=== PATIENT | female | born 1990 | race Two or more races ===

== ENCOUNTER 2017-01-21 07:59 | Emergency (ER) | payer OTHER ==
[2017-01-21 07:51] LABS: URINE SOURCE CLEAN CATCH
[2017-01-21 07:56] LABS: URINE APPEARANCE CLEAR; URINE BILIRUBIN NEG (NEG); URINE BLOOD NEG (NEG); URINE COLOR YELLOW; URINE GLUCOSE NEG (NEG); URINE KETONE NEG (NEG); URINE LEUKOCYTE ESTERASE NEG (NEG); URINE NITRATE NEG (NEG); URINE PROTEIN NEG (NEG); URINE SPECIFIC GRAVITY 1.009 (1.003-1.035); URINE UROBILINOGEN 0.2 MG/DL (NEG)
[2017-01-21 08:05] LABS: CULTURE INDICATED? NO
[2017-01-21 08:28] LABS: BASOPHIL% 0.2 % (0-2.5); EOSINOPHIL% 0.3 % (0.0-7.0); HEMOGLOBIN 14.5 gm/dL (12.0-16.0); LYMPHOCYTE# 1.3 X10e3 (1.0-3.5); LYMPHOCYTE% 9.7 % (17.0-45.0); MEAN CELL VOLUME 91.3 FL (83-96); MEAN CORPUSCULAR HGB CONC 32.8 g/dL (30-36); MEAN PLATELET VOLUME 10.5 FL (6.5-11.5); MONOCYTE# 0.6 X10e3 (0-1.0); MONOCYTE% 4.4 % (3.0-12.0); NEUTROPHIL# 11.3 X10e3 (1.5-7.1); NEUTROPHIL% 85.4 % (40-75); PLATELET COUNT 218 X10e3 (140-420); RED BLOOD COUNT 4.82 X10e (3.90-5.30); RED CELL DISTRIBUTION WIDTH 13.6 % (11.0-15.5); WHITE BLOOD COUNT 13.2 X10e3 (4.0-10.5)
[2017-01-21 08:31] LABS: DIFF IND NO
[2017-01-21 08:53] LABS: ALBUMIN SERUM 3.8 g/dL (3.5-5.0); ALKALINE PHOSPHATASE 67 U/L (32-92); ALT (SGPT) 16 U/L (10-40); AMYLASE 20 U/L (0-46); AST (SGOT) 16 U/L (10-42); BILIRUBIN,TOTAL 0.6 mg/dL (0.2-2.0); BLOOD UREA NITROGEN 11 mg/dL (9-23); BUN/CREATININE RATIO 15.71; CARBON DIOXIDE 25 mmol/L (22-31); CHLORIDE 104 mmol/L (100-111); CREATININE SERUM 0.7 mg/dL (0.6-1.4); GLOM FILT RATE Estimated 117.9 mL/min (>60); GLUCOSE FASTING 81 mg/dL (70-110); LIPASE 17 U/L (22-51); PROTEIN TOTAL SERUM 7.2 g/dL (6.0-8.3); SODIUM 136 mmol/L (135-145)
[2017-01-21 08:54] LABS: BILIRUBIN, DIRECT <0.1 mg/dL (0.0-0.2); BILIRUBIN,INDIRECT 0.5 mg/dL (0.0-0.9)
== END 2017-01-21 10:34 | disposition home or self-care (01) ==
LOC: CED 07:59
PROVIDERS: Nurse Practitioner
DX: R10.13 Epigastric pain (principal)
CPT/HCPCS: 36415; 80048; 80076; 81003; 82150; 83690; 84703; 85025; 86677; 99284

== ENCOUNTER 2017-02-13 02:16 | Inpatient (IN) | payer OTHER ==
--- NOTE | ~2017-02-13 | CT2 ---
[facility] A Service of [facility] RADIOLOGY TEXT RESULTS PATIENT: AMILCAR RODRIGUEZ LOCATION: A 240-01 : [birth year] UNIT #: [id number] AGE: [address]: Blayne Rodriguez MD SEX: F ORDER DR: [id number] [facility] [address]. [place], [place] [address] [id number] MR#: [id number] Acc #: [id number] NAME: AMILCAR RODRIGUEZ : 1990 SEX: F STUDY DATE/TIME: 02/13/2017 4:58 UNIT: JOSE ALBERTO ROOM: STUDY DESCRIPTION: CT Abd and Pelv W Cont Attending Physician: Devaughn Clinton Aprn Ordering Physician: Devaughn Clinton Aprn Primary Care Physician: Primary Care Physician No MEDICAL IMAGING REPORT This report is preliminary unless electronic signature is present EXAM CT abdomen and pelvis with contrast HISTORY 26-year-old female with diffuse abdominal pain, nausea, vomiting. TECHNIQUE This CT examination was performed with one or more of the following radiation dose reduction techniques: automatic exposure control, adjustment of mA and/or kV according to patient size, and iterative reconstruction. FINDINGS Axial images performed through the abdomen and pelvis following IV contrast. Multiplanar reconstructed images reviewed at a workstation. ABDOMEN: Lung bases unremarkable. The liver demonstrates a mildly distended gallbladder and mild periportal prominence which may represent some mild intrahepatic ductal dilatation. The common bile duct measures about 8 mm which is slightly increased in size for a patient of this age. No obstructing stone or lesions identified however further evaluation with ERCP or MRCP may be warranted. The pancreas, kidneys and adrenal glands unremarkable. The spleen appears normal. GI tract remarkable for moderate amount of colonic stool. The appendix is not clearly identified but no focal inflammatory change seen. Retroperitoneum unremarkable. PELVIS: Bladder, uterus and adnexa appear normal. The osseous structures appear normal. IMPRESSION Mild intrahepatic ductal dilatation as well as borderline distension of the common bile duct. The gallbladder is mildly distended. Findings are nonspecific but does raise the concern for possible distal obstruction but [facility] A Service of [facility] & [facility] RADIOLOGY TEXT RESULTS PATIENT: AMILCAR RODRIGUEZ LOCATION: [place] [address] : [birth year] UNIT #: [id number] AGE: [address]: Blayne Rodriguez MD SEX: F ORDER DR: a discrete abnormality is not identified at CT. Further evaluation with MRCP or ERCP may be of benefit. Dictated by... Phu Feliciano M.D. THIS IS AN ELECTRONICALLY VERIFIED REPORT Phu Feliciano M.D. at 02/13/2017 10:06 PM BLANCHE/aníbal TD: 02/13/2017 06:07 JOB #: [id number] MEDICAL IMAGING REPORT Page 1 of 1 COPY
--- NOTE | ~2017-02-13 | MR145 ---
[facility] A Service of [facility] & [facility] RADIOLOGY TEXT RESULTS PATIENT: AMILCAR FREITAS LOCATION: C2A 240-01 : [birth year] UNIT #: [id number] AGE: [address]: Blayne Rodriguez MD SEX: F ORDER DR: [id number] [facility] [address] [place], [place] [address] [id number] I MR#: [id number] #: [id number] NAME: AMILCAR RODRIGUEZ : 1990 SEX: F STUDY DATE/TIME: 02/13/2017 13:12 UNIT: [facility] ROOM: 240 STUDY DESCRIPTION: MR MRCP WWo Contrast Attending Physician: Blayne Rodriguez M.D. Ordering Physician: Blanye Rodriguez M.D. Primary Care Physician: No Primary Care Physician MRI CENTER REPORT This report is preliminary unless electronic signature is present. EXAM MRI abdomen with and without contrast, MRCP protocol. INDICATIONS Acute onset abdominal pain, nausea and vomiting beginning last night. Prominence of the biliary system on recent CT. PROCEDURE Multiplanar, multisequence MR imaging of the abdomen prior to and following 11 mL of MultiHance. COMPARISON CT from 02/13/2017. FINDINGS ABDOMEN WITHOUT CONTRAST: Liver has normal size and morphology. No hepatic fat or iron deposition. The spleen, kidneys, adrenal glands, pancreas and bowel loops have normal signal. Common duct measures 8 mm and there is mild prominence of the intrahepatic bile ducts. There are a few tiny stones layering dependently in the gallbladder. There is mild gallbladder wall thickening versus trace pericholecystic fluid. Gallbladder is moderately distended. No evidence for choledocholithiasis. No obstructing mass. Pancreatic duct is nondilated. ABDOMEN WITH CONTRAST: No abnormal enhancement in the abdomen. IMPRESSION 1. Prominence of the common duct up to 8 mm with mild intrahepatic bile duct dilation. No evidence for choledocholithiasis at this time. 2. Moderate distension of the gallbladder with mild gallbladder wall thickening versus pericholecystic fluid, as well as a few tiny stones STS. [facility] A Service of [facility] & [facility] RADIOLOGY TEXT RESULTS PATIENT: AMILCAR FREITAS LOCATION: [place] [address] : [birth year] UNIT #: [id number] AGE: [address]: Blayne Rodriguez MD SEX: F ORDER DR: in the gallbladder. Findings are suspicious for mild or early acute cholecystitis. Correlate with the patient's symptoms. 3. Biliary system findings are nonspecific but could be seen in the setting of a recently passed stone. Dictated by... Lj Wilson M.D. THIS IS AN ELECTRONICALLY VERIFIED REPORT Lj Wilson M.D. at 02/14/2017 7:02 AM EV/finn TD: 02/13/2017 20:21 JOB #: [id number] MRI CENTER REPORT Page 1 of 1 COPY
--- NOTE | ~2017-02-13 | HP ---
Unit #: [id number] #: [id number] Patient: AMILCAR RODRIGUEZ [id number] [address] [address] [id number] I MR#: [id number] NAME: AMILCAR RODRIGUEZ ROOM: 240 Age: 26 Sex: F Admission Date: 02/13/2017 : 1990 Attending Physician: Blayne Rodriguez M.D. Primary Care Physician: No Primary Care Physician HISTORY AND PHYSICAL CHIEF COMPLAINT Abdominal pain. HISTORY OF PRESENT ILLNESS The patient is a 26-year-old female with a past medical history of gastritis on omeprazole, who presented to the emergency room with a chief complaint of crushing abdominal pain. She mentioned the pain started a day ago, mainly epigastric and right upper quadrant, like someone squeezing her abdomen, about 8-10 in intensity. She complains of two episodes of vomiting. No diarrhea. Denies having similar episodes of pain. In the emergency room she was given Dilaudid and the pain is slightly better. Her CT scan in the emergency room is suggestive of mild intrahepatic ductal dilatation as well as borderline distension of the CBD. Gallbladder is mildly distended. Findings are concerning for possible distal obstruction, but a discrete abnormality is not identified at CT. Radiology is recommending MRCP or ERCP. PAST MEDICAL HISTORY History of gastritis. 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 She denies any smoking, alcohol or using any illicit drugs. FAMILY HISTORY Grandmother has diabetes. Mother has hypertension. ALLERGIES No known drug allergies. HOME MEDICATIONS 1. Prilosec. 2. Carafate. 3. control pills. REVIEW OF SYSTEMS Complete review of systems done and negative except for that mentioned in the history of present illness. PHYSICAL EXAMINATION GENERAL: The patient is alert and oriented times three, lying in the bed, in no acute distress. Unit #: [id number] #: [id number] Patient: AMILCAR RODRIGUEZ VITALS: On examination vital signs are temperature 97.8, pulse rate 71, respiratory rate 16, blood pressure 125/82. HEENT: Normocephalic, atraumatic. No icterus. Pupils equally round and reactive to light and accommodation. Extraocular muscles intact. NECK: Supple. No jugular venous distension. CHEST: Bilateral air entry. Clear to auscultation. HEART: S1 and S2. Regular rate and rhythm. ABDOMEN: Soft. Tender in the right upper quadrant. Bowel sounds present. EXTREMITIES: No edema. Normal pulses. DIAGNOSTIC STUDIES IMAGING: CT findings as mentioned above. LABORATORY: Glucose 123, BUN 14, creatinine 0.6, sodium 138, potassium 3.4, chloride 105, bicarb 25, AST 23, ALT 27, total bilirubin 0.4, direct 0.1, indirect 0.3. White blood cell count 8.5, hemoglobin 14.5, platelets 228. Urinalysis leukocyte esterase nitrite negative, 2+ blood. ASSESSMENT 1. Abdominal pain. Concern for possible gallstone which has already passed. Will keep her on p.r.n. (1) . Will consult GI. Will get an MRI of the abdomen. Will also keep her on IV antimicrobials. Will go from GI input. 2. History of gastritis. Will continue with Protonix. 3. DVT precautions. 4. Further recommendations per hospital course. Dictated by Nicanor Lyles TD: 02/13/2017 11:02 JOB #: [id number] HISTORY AND PHYSICAL Page 1 of 1 X X HISTORY AND PHYSICAL
--- NOTE | ~2017-02-13 | OR ---
Unit #: [id number] #: [id number] Patient: AMILCAR FREITAS [id number] [address] [address] [id number] I MR#: [id number] NAME: AMILCAR FREITAS ROOM: 464 Date of Procedure: 02/14/2017 Admission Date: 02/13/2017 Surgeon: Nirav Ashley M.D. : 1990 Attending Physician: Blayne Rodriguez M.D. Primary Care Physician: Primary Care Physician No OPERATIVE REPORT PREOPERATIVE DIAGNOSIS Cholecystitis. POSTOPERATIVE DIAGNOSIS Cholecystitis. PROCEDURE PERFORMED Laparoscopic cholecystectomy. ASSISTANT Mauro Fulton M.D. ANESTHESIA General endotracheal anesthesia. ESTIMATED BLOOD LOSS Minimal. IV FLUIDS 800 crystalloid. COMPLICATIONS None. INDICATIONS FOR PROCEDURE The patient is a 26-year-old with acute cholecystitis. DESCRIPTION OF PROCEDURE The patient was taken to the operating theater and placed in supine position. General anesthesia was induced. The abdomen was prepped and draped. A 5-mm Optiview trocar was placed in the right upper quadrant without difficulty. The abdomen was insufflated to 15 mmHg with CO2. Under direct vision, I placed a right lower quadrant 5 mm, subxiphoid 10 mm, and umbilical 5 mm. General inspection of the abdomen revealed acute cholecystitis with distended gallbladder, edema, and adhesions. The liver appeared normal. The gallbladder was retracted up over the liver. We dissected the neck of the gallbladder and identified the cystic duct. Its junction with the gallbladder was confirmed. It was thus skeletonized, doubly hemoclipped, and divided. The cystic artery laid immediately posterior. This was skeletonized, doubly hemoclipped, and divided. The gallbladder was removed from the gallbladder bed with Bovie electrocautery and delivered via the subxiphoid port. Hemostasis was adequate. I Unit #: [id number] #: [id number] Patient: AMILCAR FREITAS removed the ports under direct vision with no evidence of abdominal hemorrhage. The fascia was closed with 0 Vicryl and skin with 4-0 Vicryl. The patient tolerated the procedure well and sent to recovery room in good condition. Dictated by... Nicanor Robbins TD: 02/14/2017 23:36 JOB #: [id number] OPERATIVE REPORT Page 1 of 1 X Nirav Ashley MD PROCEDURE OPERATIVE NOTE
--- NOTE | ~2017-02-13 | DS ---
Unit #: [id number] #: [id number] Patient: AMILCAR FREITAS [id number] [address] [address] [id number] I MR#: [id number] NAME: AMILCAR FREITAS ROOM: 464 Age: 26 Sex: F Admission Date: 02/13/2017 : 1990 Discharge Date: 02/15/2017 Attending Physician: Blayne Rodriguez M.D. Primary Care Physician: Lola Primary Care Physician DISCHARGE SUMMARY FINAL DIAGNOSIS Cholecystitis, status post lap bharati. SECONDARY DIAGNOSIS Gastroesophageal reflux disease. CONSULTS 1. Dr. Dave. 2. Dr. Lenard Gutierres. HOSPITAL COURSE 26-year-old female presented with abdominal pain. She was seen by GI, had an ERCP. The common bile duct was dilated. She had an MRI of the abdomen which showed gallstones. She is status post surgery. At time of this dictation, she is tolerating a clear liquid diet. Her diet is to be advanced. She will be discharged home in stable condition. FOLLOWUP Patient is to follow up with her primary care provider, Dr. Franklin Landis. DISCHARGE MEDICATIONS 1. Swain 5/325, one to two tablets p.o. q.6 hourly p.r.n. Script was written by Dr. Phillips. 2. Prilosec 20 mg p.o. daily. 3. Carafate 1 g p.o. daily. 4. control pill, one pill p.o. daily. She is scheduled to follow up with PCP in the next one to two weeks. Time spend coordinating discharge is about 20 minutes. Dictated by... Nicanor Ruiz TD: 02/15/2017 09:44 JOB #: [id number] Unit #: [id number] #: [id number] Patient: AMILCAR FREITAS DISCHARGE SUMMARY Page 1 of 1 X Tessie Weston MD X DISCHARGE SUMMARY
--- NOTE | ~2017-02-13 | CO ---
Unit #: [id number] #: [id number] Patient: AMILCAR RODRIGUEZ [id number] [address] [address] [id number] I MR#: [id number] NAME: AMILCAR RODRIGUEZ ROOM: 240 Age: 26 Sex: F Admission Date: 02/13/2017 : 1990 Attending Physician: Blayne Rodriguez M.D. Primary Care Physician: Lola Primary Care Physician Consultation Date: 02/13/2017 CONSULTATION REPORT REASON FOR CONSULTATION Epigastric and right upper quadrant pain. CONSULTING PHYSICIAN Dr. Lenard Gutierres. HISTORY OF PRESENT ILLNESS Thank you very much for asking us to see Ms. Rodriguez. She is a 26-year-old female. 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 She mentioned that the pain started 24-36 hours ago. It was mainly epigastric and right upper quadrant. It was very severe. It was a deep pressure-type pain. She had nausea and vomiting. She denies any GI bleeding. She denies any melena or hematochezia or hematemesis. She denies any evidence of jaundice. No or pulmonary symptoms. She has not had a similar episode of pain. In the emergency room, she was evaluated and had normal CBC and CMP as well as amylase and lipase. A CAT scan was suggestive of mild intrahepatic ductal dilatation with her bile duct at the upper limits of normal. There was no evidence of acute cholecystitis. She presents at this time for further evaluation. PAST MEDICAL HISTORY Alkaline gastritis. SOCIAL HISTORY No tobacco or alcohol use. 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 FAMILY HISTORY Hypertension, diabetes. ALLERGIES No known medical allergies. MEDICATIONS AT HOME 1. Prilosec. 2. Carafate. 3. control pills. REVIEW OF SYSTEMS Negative except for above. IMMUNIZATIONS Unit #: [id number] #: [id number] Patient: AMILCAR RODRIGUEZ Status unknown. PHYSICAL EXAMINATION GENERAL: A well-developed, well-nourished, white female in mild distress. VITAL SIGNS: Afebrile. Vital signs stable. NECK: Supple. No thyromegaly or adenopathy. HEENT: Sclerae not icteric. Extraocular movements are intact. BACK: No CVA or spinous tenderness. ABDOMEN: Flat, soft. Nontender in the lower abdomen or on the left side. In the epigastric area and right upper quadrant, there is mild to moderate tenderness but no rebound, perineal signs, or masses. EXTREMITIES: No calf tenderness. No erythema. DIAGNOSTIC STUDIES LABORATORY: Laboratory studies reveal the patient to have a CMP that shows a glucose of 123, BUN 14, creatinine 0.5, potassium 3.4. Normal liver function studies, amylase, and lipase. Her white count is 8.5 with a hemoglobin of 14.5, hematocrit 44.6. Her urinalysis is trace leukocyte esterase, negative nitrites. IMPRESSION A 26-year-old female with epigastric and right upper quadrant pain. We have explained to the patient that we feel she should have a STAT right upper quadrant ultrasound to see if stones are present. Often times, stones will not show up on CT scan but will show up on ultrasound. If this is negative, she may need upper endoscopy versus HIDA scan. Will proceed accordingly. Her laboratory studies are in the process of being repeated. Dictated by... Nicanor Solis/malachi TD: 02/13/2017 14:36 JOB #: [id number] CC: [facility] CONSULTATION REPORT Page 1 of 1 X Soham Dave MD X CONSULTATION REPORT
--- NOTE | ~2017-02-13 | CO ---
Unit #: [id number] #: [id number] Patient: AMILCAR RODRIGUEZ [id number] [address] [address] [id number] I MR#: [id number] NAME: AMILCAR RODRIGUEZ ROOM: 240 Age: 26 Sex: F Admission Date: 02/13/2017 : 1990 Attending Physician: Blayne Rodriguez M.D. Primary Care Physician: Lola Primary Care Physician Consultation Date: 02/13/2017 CONSULTATION REPORT REASON FOR CONSULT Severe abdominal pain, dilated CBD and intrahepatic duct. HISTORY OF PRESENT ILLNESS Ms. Cotton is a 26-year-old lady. She was fine until last night when she suddenly woke up with severe upper abdominal pain associated with nausea and vomiting. She has never had similar pain. It was rated a 10 out of 10, associated with vomiting. No hematemesis. No radiation to back. She did not eat anything unusual the night before. She has no bowel symptoms. PAST MEDICAL HISTORY History of gastritis, has been taking acid-reducing medications. SOCIAL HISTORY Nonsmoker. Nonalcoholic. FAMILY HISTORY Not contributory. ALLERGIES None. MEDICATIONS Medications at home included Prilosec and control pills. REVIEW OF SYSTEMS A complete review of systems was done, which was negative other than as mentioned above. PHYSICAL EXAMINATION VITAL SIGNS: Vital signs stable. Afebrile, 97.8, pulse 71, respirations 16, blood pressure 125/82. GENERAL: No acute distress. However, looks in pain. HEENT: Pupils equal and reactive. Sclera anicteric. Oral mucosa moist. NECK: No JVD. No lymphadenopathy. CHEST: Clear to auscultation bilaterally. CARDIOVASCULAR SYSTEM: Regular rate and rhythm. No murmurs. ABDOMEN: Significantly tender in epigastric and right upper quadrant areas. No guarding or rebound. Bowel sounds are present. EXTREMITIES: Without any clubbing, cyanosis or edema. NEUROLOGIC: Intact. DIAGNOSTIC STUDIES LABS: LFTs are normal. CBC shows normal white count, hemoglobin, Unit #: [id number] #: [id number] Patient: AMILCAR RODRIGUEZ hematocrit. Amylase and lipase are normal. IMAGING: CT scan shows dilated intrahepatic and common bile duct. Gallbladder shows some swelling, also. ASSESSMENT AND PLAN Patient with significant biliary colic, possible CBD stone versus acute cholecystitis. The LFTs are normal. She has no fever or white count at this time. Will continue treatment with symptomatic treatment of pain, as well as antibiotics for now. Will get a HIDA scan. I will have LSA to consult on patient. If continues with pain, will consider laparoscopic cholecystectomy versus ERCP after discussing with surgery. Thank you, Dr. Rodriguez, for this interesting consult. Will follow along. Dictated by... Nicanor Mai/charlie TD: 02/13/2017 14:04 JOB #: [id number] CONSULTATION REPORT Page 1 of 1 X Lenard Gutierres MD CONSULTATION REPORT
[2017-02-13 02:50] LABS: BASOPHIL% 0.4 % (0-2.5); EOSINOPHIL# 0.1 X10e3 (0-0.7); EOSINOPHIL% 1.4 % (0.0-7.0); HEMATOCRIT 44.6 % (35.0-45.0); HEMOGLOBIN 14.5 gm/dL (12.0-16.0); LYMPHOCYTE# 3.8 X10e3 (1.0-3.5); LYMPHOCYTE% 44.2 % (17.0-45.0); MEAN CELL VOLUME 92.4 FL (83-96); MEAN CORPUSCULAR HGB CONC 32.5 g/dL (30-36); MEAN PLATELET VOLUME 10.7 FL (6.5-11.5); MONOCYTE# 0.7 X10e3 (0-1.0); MONOCYTE% 7.7 % (3.0-12.0); NEUTROPHIL# 3.9 X10e3 (1.5-7.1); NEUTROPHIL% 46.3 % (40-75); PLATELET COUNT 228 X10e3 (140-420); RED BLOOD COUNT 4.83 X10e (3.90-5.30); RED CELL DISTRIBUTION WIDTH 13.8 % (11.0-15.5); WHITE BLOOD COUNT 8.5 X10e3 (4.0-10.5)
[2017-02-13 02:51] LABS: DIFF IND NO
[2017-02-13 03:13] LABS: ALBUMIN SERUM 3.7 g/dL (3.5-5.0); BILIRUBIN,TOTAL 0.4 mg/dL (0.2-2.0); CALCIUM SERUM 8.3 mg/dL (8.4-10.2); CREATININE SERUM 0.5 mg/dL (0.6-1.4); GLOM FILT RATE Estimated 131.7 mL/min (>60); POTASSIUM 3.4 mmol/L (3.5-5.1); PROTEIN TOTAL SERUM 6.9 g/dL (6.0-8.3)
[2017-02-13 03:17] LABS: BILIRUBIN, DIRECT 0.1 mg/dL (0.0-0.2); BILIRUBIN,INDIRECT 0.3 mg/dL (0.0-0.9)
[2017-02-13 04:44] LABS: URINE APPEARANCE CLEAR; URINE BACTERIA AUWI NEG (NEGATIVE); URINE BILIRUBIN NEG (NEG); URINE BLOOD 2+ (NEG); URINE COLOR YELLOW; URINE GLUCOSE NEG (NEG); URINE KETONE NEG (NEG); URINE LEUKOCYTE ESTERASE TRACE (NEG); URINE NITRATE NEG (NEG); URINE PH 7.5 (5-8); URINE PROTEIN NEG (NEG); URINE SPECIFIC GRAVITY 1.013 (1.003-1.035); URINE SQUAMOUS EPITHELIAL CELL OCC /[HPF]; URINE UROBILINOGEN 0.2 MG/DL (NEG)
[2017-02-13 04:46] LABS: CULTURE INDICATED? NO
[2017-02-13] MEDS ORDERED: PRILOSEC PO (07:40)
[2017-02-13] MEDS ORDERED: BIRTH CONTROL PILL PO (07:41)
[2017-02-13] MEDS ORDERED: CARAFATE PO (07:41)
[2017-02-13 13:27] LABS: CHOLESTEROL 229 mg/dL (0-200); HDL CHOLESTEROL 61 mg/dL (35-95); LDL/HDL RATIO 2 RATIO (0-4); TRIGLYCERIDES 101 mg/dL (10-160)
[2017-02-13 13:31] LABS: LDL CHOLESTEROL 148 mg/dL (-130)
[2017-02-13 13:53] LABS: BILIRUBIN,TOTAL 1.4 mg/dL (0.2-2.0); CALCIUM SERUM 8.8 mg/dL (8.4-10.2); CREATININE SERUM 0.6 mg/dL (0.6-1.4); POTASSIUM 3.9 mmol/L (3.5-5.1); PROTEIN TOTAL SERUM 7.2 g/dL (6.0-8.3)
[2017-02-14 06:15] LABS: BASOPHIL% 0.4 % (0-2.5); EOSINOPHIL# 0.1 X10e3 (0-0.7); EOSINOPHIL% 1.8 % (0.0-7.0); HEMATOCRIT 44.2 % (35.0-45.0); HEMOGLOBIN 14.4 gm/dL (12.0-16.0); LYMPHOCYTE# 1.5 X10e3 (1.0-3.5); LYMPHOCYTE% 33.5 % (17.0-45.0); MEAN CELL VOLUME 91.8 FL (83-96); MEAN CORPUSCULAR HEMOGLOBIN 29.8 PG (28-34); MEAN CORPUSCULAR HGB CONC 32.5 g/dL (30-36); MEAN PLATELET VOLUME 10.1 FL (6.5-11.5); MONOCYTE# 0.4 X10e3 (0-1.0); NEUTROPHIL# 2.6 X10e3 (1.5-7.1); NEUTROPHIL% 55.3 % (40-75); PLATELET COUNT 186 X10e3 (140-420); RED BLOOD COUNT 4.82 X10e (3.90-5.30); RED CELL DISTRIBUTION WIDTH 13.5 % (11.0-15.5); WHITE BLOOD COUNT 4.6 X10e3 (4.0-10.5)
[2017-02-14 06:29] LABS: DIFF IND NO
[2017-02-14 06:56] LABS: ALBUMIN SERUM 3.5 g/dL (3.5-5.0); BILIRUBIN,TOTAL 0.9 mg/dL (0.2-2.0); BUN/CREATININE RATIO 11.42; CALCIUM SERUM 8.2 mg/dL (8.4-10.2); CREATININE SERUM 0.7 mg/dL (0.6-1.4); GLOM FILT RATE Estimated 117.9 mL/min (>60); POTASSIUM 3.7 mmol/L (3.5-5.1); PROTEIN TOTAL SERUM 6.4 g/dL (6.0-8.3)
[2017-02-15 04:21] LABS: HEMATOCRIT 39.8 % (35.0-45.0); HEMOGLOBIN 13.1 gm/dL (12.0-16.0); MEAN CELL VOLUME 90.8 FL (83-96); MEAN CORPUSCULAR HEMOGLOBIN 29.8 PG (28-34); MEAN CORPUSCULAR HGB CONC 32.8 g/dL (30-36); MEAN PLATELET VOLUME 10.5 FL (6.5-11.5); RED BLOOD COUNT 4.39 X10e (3.90-5.30)
[2017-02-15 04:22] LABS: WHITE BLOOD COUNT 11.8 X10e3 (4.0-10.5)
[2017-02-15 04:43] LABS: ALBUMIN SERUM 3.4 g/dL (3.5-5.0); BILIRUBIN,TOTAL 0.7 mg/dL (0.2-2.0); CALCIUM SERUM 8.1 mg/dL (8.4-10.2); CREATININE SERUM 0.6 mg/dL (0.6-1.4); POTASSIUM 3.5 mmol/L (3.5-5.1); PROTEIN TOTAL SERUM 6.1 g/dL (6.0-8.3)
[2017-02-16] MEDS ORDERED: LORTAB 5-325 M1 EACH PO (08:11)
== END 2017-02-16 10:35 | disposition home or self-care (01) | DRG 419 ==
LOC: CED 02:16 → CEDOF 07:00 → C2A 07:00 → CEDOF 07:13 → CED 07:13 → CEDOF 08:43 → C2A 08:43 → C4C 02-14 12:18
PROVIDERS: Internal Medicine; Nurse Practitioner Family; Surgery
PROC: 0FT44ZZ Resection of Gallbladder, Percutaneous Endoscopic Approach (ICD-10-PCS; principal; 2017-02-14 13:00)
DX: K80.10 Calculus of gallbladder with chronic cholecystitis without obstruction (principal); K21.9 Gastro-esophageal reflux disease without esophagitis; Z83.3 Family history of diabetes mellitus; Z82.49 Family history of ischemic heart disease and other diseases of the circulatory system
CPT/HCPCS: 36415; 74177; 74183; 80048; 80053; 80061; 80076; 81003; 82150; 83690; 84703; 85025; 85027; 88304; 94760; 96361; 96365; 96366; 96374; 96375; 96376; 99285; A9577; C9113; G0378; J1100; J1170; J1885; J2250; J2270; J2405; J2543; J2710; J2765; Q9967